=== PATIENT | female | born 1985 | race Caucasian/White ===

== ENCOUNTER → 2018-11-21 | Outpatient (CLI) | payer OTHER | LOC: FIMAGING 13:35 | PROVIDERS: ATTEND Obstetrics & Gynecology | DX: O9A.111 Malignant neoplasm complicating pregnancy, first trimester (principal); C49.4 Malignant neoplasm of connective and soft tissue of abdomen; C22.9 Malignant neoplasm of liver, not specified as primary or secondary; D33.3 Benign neoplasm of cranial nerves; H91.90 Unspecified hearing loss, unspecified ear; Z3A.13 13 weeks gestation of pregnancy ==

== ENCOUNTER → 2018-12-05 | Outpatient (CLI) | payer OTHER ==
[~2018-12-05] MED LIST: GADOBUTROL 10 ML VIAL IVP ONE
== END ==
LOC: FIMAGING 09:35
PROVIDERS: ATTEND Obstetrics & Gynecology
DX: K76.89 Other specified diseases of liver (principal)
CPT/HCPCS: A9585

== ENCOUNTER → 2019-01-17 | Outpatient (CLI) | payer OTHER | LOC: FIMAGING 09:38 | PROVIDERS: ATTEND Obstetrics & Gynecology | DX: O26.612 Liver and biliary tract disorders in pregnancy, second trimester (principal); Z3A.20 20 weeks gestation of pregnancy; K76.89 Other specified diseases of liver ==